=== PATIENT | female | born 1960 | race Caucasian/White ===

== ENCOUNTER → 2020-12-30 15:37 | Outpatient (CLI) | payer OTHER, SELFPAY ==
--- NOTE | ~2020-12-30 | MR_ITS ---
EXAMINATION: MR thoracic spine wo con DATE: 12/30/2020 16:53 INDICATION: Thoracic back pain. TECHNIQUE: Magnetic resonance imaging (MRI) of the thoracic spine was performed without intravenous c ontrast. Sagittal localizer T1-weighted FSE of the cervical spine was obtained. Thoracic spine sequen anne marie included sagittal T2-weighted FSE, sagittal T1-weighted FSE, sagittal T2-weighted FS FSE, and axi al T2-weighted FSE. COMPARISON: None FINDINGS: There is 32 degrees dextroscoliosis of thoracic spine. Vertebral body heights are normal. T here is mildly decreased disc height at T4-T5 and T5-T6, severely decreased disc height at T6-T7 and T7-T8, and moderately decreased disc height at T8-T9 and T9-T10. At T9-T10, there is a left subarticu lar zone extrusion. There is multilevel facet joint osteoarthritis, mild at most levels. At T7-T8 and T8-T9, there is severe left facet joint osteoarthritis. On the right, there is mild neural foraminal stenosis at T2-T3, T3-T4, and T4-T5. On the left, there is mild neural foraminal stenosis at T7-T8, T8-T9, and T9-T10. No central canal stenosis. The spinal cord signal intensity is normal. IMPRESSION: 1. Mild thoracic spondylosis. 2. Thoracic dextroscoliosis. Reviewed, dictated and finalized at location A.
--- NOTE | ~2020-12-30 | MR_ITS ---
EXAMINATION: MR lumbar spine wo con DATE: 12/30/2020 16:53 INDICATION: Low back pain. TECHNIQUE: Magnetic resonance imaging (MRI) of the lumbar spine was performed without intravenous con trast. Sequences included sagittal T2-weighted FSE, sagittal T2-weighted FS FSE, sagittal T1-weighted FSE, and axial T2-weighted FSE. COMPARISON: Lumbar spine MRI 11/27/2017 FINDINGS: There is dextroscoliosis of thoracic spine. Vertebral body heights are normal. Intervertebr al disc heights are normal. The distal spinal cord signal intensity is normal. The conus medullaris i s at T12-L1. There is a 12 mm cyst in left kidney. The following disc levels are specifically discuss ed: L1-L2: The disc does not extend beyond the endplate margin. There is mild bilateral facet joint osteo arthritis. There is no neural foraminal stenosis. There is no central canal stenosis. L2-L3: The disc does not extend beyond the endplate margin. There is mild bilateral facet joint osteo arthritis. There is no neural foraminal stenosis. There is no central canal stenosis. L3-L4: There is a right foraminal protrusion. There is mild bilateral facet joint osteoarthritis. The re is mild right neural foraminal stenosis. There is no central canal stenosis. L4-L5: The disc does not extend beyond the endplate margin. There is severe bilateral facet joint ost eoarthritis. There is mild bilateral neural foraminal stenosis. There is no central canal stenosis. L5-S1: The disc does not extend beyond the endplate margin. There is mild bilateral facet joint osteo arthritis. There is no neural foraminal stenosis. There is no central canal stenosis. IMPRESSION: 1. Mild lumbar spondylosis, stable from 11/27/2017 Reviewed, dictated and finalized at location A.
== END ==
PROVIDERS: Visit Provider Nurse Practitioner Adult Health
DX: M47.894 Other spondylosis, thoracic region (principal); M47.896 Other spondylosis, lumbar region
CPT/HCPCS: 72146; 72148

== ENCOUNTER → 2021-02-24 15:55 | Outpatient (CLI) | payer OTHER, SELFPAY ==
--- NOTE | ~2021-02-24 | MM_ITS ---
EXAMINATION: MM screening [facility] BI w mary HISTORY: Screening mammogram TECHNIQUE: Craniocaudal and mediolateral oblique 3-D tomosynthesis images were obtained and synthetic 2-D images were generated. CAD analysis was submitted and interpreted. COMPARISON: 08/16/2019, 03/22/2016, 08/19/2013, 08/25/2009 BREAST PARENCHYMAL COMPOSITION: There are scattered areas of fibroglandular density. FINDINGS: There is no evidence of suspicious mass, calcification, or architectural distortion to sugg est malignancy in either breast. There has been no suspicious interval change. IMPRESSION: 1. No mammographic evidence of malignancy. 2. Recommend routine screening mammography in one year. BI-RADS Category 1: Negative Reviewed, dictated and finalized at location A.
== END ==
PROVIDERS: PCP Internal Medicine; Visit Provider Internal Medicine
DX: Z12.31 Encounter for screening mammogram for malignant neoplasm of breast (principal)
CPT/HCPCS: 77063; 77067

== ENCOUNTER → 2021-03-01 15:41 | Outpatient (CLI) | payer OTHER, SELFPAY ==
--- NOTE | ~2021-03-01 | XR_ITS ---
XR shoulder RT min 2V DATE: 03/01/2021 16:22 INDICATION: Right shoulder pain TECHNIQUE: 4 views COMPARISON: 05/29/2006 right shoulder FINDINGS: Osteopenia. Dextroscoliosis of the thoracic spine. No fracture or dislocation of the right shoulder. Normal alignment at the acromioclavicular and gleno humeral joints. There is degenerative spurring of the right acromioclavicular joint. No periosteal re action or bone destruction. No abnormal right shoulder soft tissue calcification. IMPRESSION: Osteopenia Degenerative change at the right acromioclavicular joint Dextroscoliosis of the thoracic spine Reviewed, dictated and finalized at location A.
== END ==
PROVIDERS: Visit Provider Nurse Practitioner Adult Health
DX: M19.011 Primary osteoarthritis, right shoulder (principal); M85.811 Other specified disorders of bone density and structure, right shoulder; M41.9 Scoliosis, unspecified
CPT/HCPCS: 73030

== ENCOUNTER → 2021-11-03 14:21 | Outpatient (CLI) | payer OTHER, SELFPAY ==
--- NOTE | ~2021-11-03 | MR_ITS ---
EXAMINATION: MR shoulder RT wo con DATE: 11/03/2021 15:27 INDICATION: Right shoulder pain. TECHNIQUE: Magnetic resonance imaging (MRI) of the right shoulder was performed without intravenous c ontrast. Sequences included axial PD-weighted FS FSE, coronal oblique PD-weighted FS FSE and T2-weigh festus FS FSE, and sagittal oblique T2-weighted FS FSE and T1-weighted FSE. COMPARISON: Right shoulder radiographs 03/01/2021 FINDINGS: Coracoacromial arch: The acromion undersurface is curved in morphology (type II). There is severe acromioclavicular joint osteoarthritis. There is mild subacromial/subdeltoid bursitis. Rotator cuff: There is moderate supraspinatus and infraspinatus tendinopathy. Teres minor tendon is normal. There i s mild subscapularis tendinopathy. No tear. There is no asymmetric fatty atrophy of the rotator cuff muscle bellies. Biceps tendon and glenoid labrum: Biceps tendon is in bicipital groove. There is mild intra-articular biceps tendinopathy. The glenoid labrum is normal. Fluid: There is a small glenohumeral joint effusion. Bones/cartilage: There is partial-thickness cartilage loss of central glenoid. Humeral head cartilage is normal. IMPRESSION: 1. Moderate rotator cuff tendinopathy. No tear. 2. Mild glenohumeral joint chondrosis. 3. Severe acromioclavicular joint osteoarthritis. 4. Small glenohumeral joint effusion. 5. Mild subacromial/subdeltoid bursitis. 6. Mild intra-articular biceps tendinopathy. Reviewed, dictated and finalized at location A. OSITION TILE LAYER
== END ==
PROVIDERS: PCP Internal Medicine; Visit Provider Nurse Practitioner Adult Health
DX: M25.511 Pain in right shoulder (principal); M75.81 Other shoulder lesions, right shoulder; M94.8X1 Other specified disorders of cartilage, shoulder; M19.011 Primary osteoarthritis, right shoulder; M75.51 Bursitis of right shoulder
CPT/HCPCS: 73221

== ENCOUNTER → 2021-11-08 13:40 | Outpatient (CLI) | payer OTHER, SELFPAY ==
--- NOTE | ~2021-11-08 | DEXA_ITS ---
Bone Density Report Name: OSCAR JAMES Age: 61 Sex: Female Ethnicity: White Date of : 1960 Indication: postmenopausal; screening for osteoporosis; height loss; Referring Provider: Gayla Velasquez Study: Bone densitometry was performed. Exam Date: November 08, 2021 Accession number: [id number] Bone Density: Region BMD T-score Z-score Classification AP Spine (L1-L4) 0.832 -2.0 -0.3 Osteopenia Femoral Neck (Left) 0.596 -2.3 -0.9 Osteopenia Total Hip (Left) 0.759 -1.5 -0.4 Osteopenia Femoral Neck (Right) 0.605 -2.2 -0.8 Osteopenia Total Hip (Right) 0.787 -1.3 -0.2 Osteopenia Total Hip Mean 0.773 -1.4 -0.3 Osteopenia World Health Organization criteria for BMD impression classify patients as: Normal (T-score at or above -1.0), Osteopenia (T-score between -1.0 and -2.5), or Osteoporosis (T-score at or below -2.5). 10-year Fracture Risk(1): Major Osteoporotic Fracture 11% Hip Fracture 1.8% Reported Risk Factors: [place] (), Neck BMD=0.596, BMI=23.5 (1) FRAX(R) Version 3.08. Fracture probability calculated for an untreated patient. Fracture probability may be lower if the patient has received treatment. Clinical Information Provided by Patient: Has used the following medications: Vitamin D Patient maximum height was 61 Menopause Age: 51 No regular weight bearing exercise Does not regularly consume dairy products Drinks caffeinated beverages Onset of menses at age 14 Number of children 2 Impression: The patient has low bone mass, based on the Left Femoral Neck T-score. The patient has an estimated ten-year risk of hip fracture of 1.8% and an estimated ten-year risk of major fracture of 11%, based on the WHO FRAX algorithm. Discussion: BONE DENSITY IS LOW AT ONE OR MORE SKELETAL SITES. This patient's lowest T-score is low at one or more skeletal sites. It meets the World Health Organization's (WHO) criteria for ?low bone mass? (T-score between -1.0 and -2.5). The patient's 10-year risk of fracture as calculated by FRAX is less than the threshold where pharmacological therapy is recommended by the National Osteoporosis Foundation (NOF). However, all treatment decisions require clinical judgment and consideration of individual patient factors, including patient preferences, comorbidities, previous drug use, risk factors not captured in the FRAX model (e.g., frailty, falls, vitamin D deficiency, increased bone turnover, interval significant decline in bone density) and possible under or overestimation of fracture risk by FRAX. The patient should follow a healthful lifestyle (good nutrition with adequate calcium and vitamin D, and appropriate weight-bearing exercise). Follow-Up: Consider repeating this study in 2 to 3 years to reassess this patient's status, or sooner if there is some new
== END ==
PROVIDERS: PCP Internal Medicine; Visit Provider Nurse Practitioner
DX: M85.89 Other specified disorders of bone density and structure, multiple sites (principal)
CPT/HCPCS: 77080

== ENCOUNTER 2022-01-28 09:00 | Outpatient (RCR) | payer OTHER, SELFPAY ==
[2021-12-31 10:35] VITALS: BP_SYST 145
--- NOTE | 2021-12-31 16:38 | PTOPEVAL ---
PHYSICAL THERAPY INITIAL EVALUATION. Thank you for referring Nahomi Landers to [facility].? The patient is scheduled to be seen for therapy? 2x/week for 4 weeks. Please review, sign, date and return this plan of care JAKOB. I agree with and certify that the following plan of care is medically necessary. Referring Physician Date Attending Provider: Gayla Velasquez NP *PT Outpatient Evaluation Start: 12/31/21 Evaluation Information Diagnosis R shoulder pain Onset 1 year - shoulder Subjective Information Pt states her low back has Query Text:As Reported By Patient/ hurt for years, she has done Family therapy, injections, and froze the nerve endings . The back pain used to be constant and now is intermittent. Her shoulder is now her main priority. She states she fell about a year ago and jammed it and it just never really got better. She reports she is not able to move her arm behind her back or in other certain positions needed for her daily chores. She recently received an injection in her shoulder that she states helped a little. She reports full body stiffness and achiness, she states she subsided while she was on vacations as she walked very frequently. Pt reports pain vacuuming, closing the trunk of her car, and reaching to the top shelf. Pain Assessment Right Shoulder(s) Reported Pain Level 1 Pain Description Sharp,Soreness Pain Frequency Chronic,Intermittent Lowest Pain Intensity 1 Greatest Pain Intensity 10 Upper Extremity Range of Motion Right Shoulder Flexion - Active 125 Shoulder Flexion - Passive 137 Shoulder Abduction - Active 117 Shoulder Abduction - Passive 145 Shoulder Medial Rotation - Active T2 Shoulder Lateral Rotation - Active T11 Left Shoulder Flexion - Active 145 Shoulder Abduction - Active 170 Shoulder Medial Rotation - Active T4 Shoulder Lateral Rotation - Active T4 Upper Extremity Muscle Strength Testing Right Shoulder Flexion Strength 4+ Good + Shoulder Abduction Strength 4 Good Shoulder Medial Rotation Strength
--- NOTE | 2022-01-17 08:11 | PCPTNOTE ---
Patient called & cancelled scheduled appointments from January 17- due to being out of town.
--- NOTE | 2022-01-26 14:57 | PCPTNOTE ---
Patient called & cancelled scheduled appointment this date due to bad weather in the forecast.
[2022-01-28 09:04] VITALS: BP_SYST 180
--- NOTE | 2022-01-28 10:43 | PTOPEVAL ---
PHYSICAL THERAPY PROGRESS REPORT AND DISCHARGE NOTE. Thank you for referring Nahomi Landers to [facility].? The patient is to be discharged from skilled physical therapy services at this time. Please review, sign, date and return this plan of care JAKOB. I agree with and certify that the following plan of care is medically necessary. Referring Physician Date Attending Provider: Gayla Velasquez NP Evaluation Information Diagnosis R shoulder pain Onset 1 year - shoulder Subjective Information Pt states she thinks her Query Text:As Reported By Patient/ shoulder is doing much better, Family she states her shoulder is a little sore but she states this feels more like muscle soreness. She states she is becoming more aware of her posture. She states she closed the trunk of her car the other day without an increase in pain. Pain Assessment Right Shoulder(s) Reported Pain Level 0 Pain Description Soreness Greatest Pain Intensity 3 Scapular/ Shoulder Range of Motion Right Shoulder Flexion - Active 142 Shoulder Flexion - Passive 162 Shoulder Abduction - Active 172 Shoulder Abduction - Passive 180 Shoulder Medial Rotation - Active T3 Shoulder Lateral Rotation - Active T8 Left Shoulder Flexion - Active 145 Shoulder Abduction - Active 170 Shoulder Medial Rotation - Active T4 Shoulder Lateral Rotation - Active T4 Upper Extremity Muscle Strength Testing Right Shoulder Flexion Strength 4+ Good + Shoulder Abduction Strength 4+ Good + Shoulder Medial Rotation Strength 4+ Good + Shoulder Lateral Rotation Strength 4+ Good + Shoulder Strength Comments R shoulder requires more resistance than L PT Clinical Summary Nahomi presents to therapy today for her progress report following 5 visits of therapy to treat her diagnosis of R shoulder pain. Today she demonstrates improvements in active and passive ROM, functional ROM equal to the uninvolved side, and strength equal to the uninvolved side. She has met all of her therapy goals. She is to be discharged from skilled therapy services at this time to continue with her home
== END 2022-01-28 15:10 | disposition home or self-care (01) ==
LOC: ANHPT 09:00
PROVIDERS: PCP Internal Medicine; Visit Provider Nurse Practitioner
DX: M54.50 Low back pain, unspecified (principal); M25.511 Pain in right shoulder; G89.29 Other chronic pain
CPT/HCPCS: 97110; 97112; 97161

== ENCOUNTER 2023-11-24 10:15 | Outpatient (CLI) | payer MEDICARE, OTHER, SELFPAY ==
[2023-11-24 12:14] LABS: Basophils Absolute Auto 0.1 K/mm3 (0.0-0.1); Basophils Percent Auto 1.4 % (0.2-1.2); Eosinophils Absolute Auto 0.5 K/mm3 (0-0.3); Eosinophils Percent Auto 8.8 % (0-4.4); Hematocrit 42.3 % (37.0-47.0); Immature Granulocyte Absolute 0.01 K/mm3 (0.00-0.031); Immature Granulocyte Percent A 0.2 % (0-0.5); Lymphocytes Absolute Auto 1.83 K/mm3 (0.9-3.2); Lymphocytes Percent Auto 31.1 % (18.3-44.2); Mean Corpuscular HGB Conc 33.1 g/dl (32-36); Mean Corpuscular Hemoglobin 32.2 pg (26-34); Mean Corpuscular Volume 97.2 fl (80-100); Mean Platelet Volume 10.6 fl (7.4-10.4); Monocytes Absolute Auto 0.4 K/mm3 (0.1-0.6); Monocytes Percent Auto 6.5 % (2.6-8.5); Neutrophils Absolute Auto 3.1 K/mm3 (1.3-6.7); Platelet Count Result 258 k/mm3 (150-375); Red Blood Count 4.35 M/mm3 (4.2-5.4); Red Cell Distribution Width 12.6 % (11.5-14.5); White Blood Count 5.9 K/mm3 (4.5-10.0)
[2023-11-24 12:22] LABS: Alanine Aminotransferase 17 U/L (6-35); Albumin Level 4.4 g/dL (3.5-5.1); Alkaline Phosphatase 56 U/L (38-126); Anion Gap 5 mmol/L (8-16); Aspartate Amino Transferase 39 U/L (14-36); Bilirubin,Total 0.7 mg/dL (0.2-1.3); Blood Urea Nitrogen 24 mg/dL (7-17); Calcium 9.8 mg/dL (8.4-10.2); Carbon Dioxide 30 mmol/L (22-30); Chloride 105 mmol/L (98-107); Cholesterol 193 mg/dL (0-200); Estimated Glomerular Filt Rate > 60; Glucose 91 mg/dL (65-110); HDL Direct 64 mg/dL; Potassium 4.2 mmol/L (3.4-5.0); Sodium 140 mmol/L (137-145); Triglycerides 99 mg/dL (<150)
[2023-11-24 12:33] LABS: LDL Cholesterol Direct 63 mg/dL
[2023-11-24 13:14] LABS: Vitamin D 25 Hydroxy 87.6 ng/mL
== END 2023-11-24 10:16 | disposition home or self-care (01) ==
PROVIDERS: PCP Internal Medicine; Visit Provider Nurse Practitioner
DX: E78.5 Hyperlipidemia, unspecified (principal); E55.9 Vitamin D deficiency, unspecified; Z13.29 Encounter for screening for other suspected endocrine disorder
CPT/HCPCS: 36415; 80053; 80061; 82306; 85025

== ENCOUNTER 2024-01-22 15:33 | Outpatient (CLI) | payer MEDICARE, OTHER, SELFPAY ==
--- NOTE | 2024-01-22 15:52 | ECG_ITS ---
Measurements Intervals [place] Rate: 53 P: 43 MD: 180 QRS: 21 QRSD: 92 T: 33 QT: 418 QTc: 402 Interpretive Statements SINUS BRADYCARDIA LOW QRS VOLTAGE IN PRECORDIAL LEADS [QRS DEFLECTION <1.0 mV IN CHEST LEADS] POSSIBLE RIGHT VENTRICULAR CONDUCTION DELAY [RSR (QR) IN V1/V2] BORDERLINE ECG SEE SCANNED COPY FOR SIGNATURE MTDD
== END 2024-01-22 15:34 | disposition home or self-care (01) ==
LOC: ANHCARD 15:35
PROVIDERS: PCP Internal Medicine; Visit Provider Podiatrist Foot & Ankle Surgery
DX: R03.0 Elevated blood-pressure reading, without diagnosis of hypertension (principal); R00.1 Bradycardia, unspecified
CPT/HCPCS: 93005

== ENCOUNTER 2024-06-07 11:01 | Outpatient (CLI) | payer MEDICARE, SELFPAY | END 2024-06-07 11:02 | disposition home or self-care (01) | LOC: ANHAUDASC 11:02 | PROVIDERS: PCP Internal Medicine; Visit Provider Nurse Practitioner | DX: H90.3 Sensorineural hearing loss, bilateral (principal) | CPT/HCPCS: 92557; 92567 ==

== ENCOUNTER 2025-02-28 10:29 | Outpatient (CLI) | payer MEDICARE, SELFPAY ==
--- NOTE | ~2025-02-28 | DEXA_ITS ---
Bone Density Report Name: OSCAR JAMES Age: 64 Sex: Female Ethnicity: White Date of : 1960 Indication: osteopenia; height loss; Referring Provider: VANE ABBOTT Study: Bone densitometry was performed. Exam Date: February 28, 2025 Accession number: [id number] Bone Density: Region BMD T-score Z-score Classification AP Spine(L1-L4) 0.916 -1.2 0.7 Osteopenia Femoral Neck (Left) 0.565 -2.6 -1.0 Osteoporosis Total Hip (Left) 0.783 -1.3 0.0 Osteopenia Femoral Neck (Right) 0.596 -2.3 -0.7 Osteopenia Total Hip (Right) 0.817 -1.0 0.3 Normal Total Hip Mean 0.800 -1.2 0.2 Osteopenia World Health Organization criteria for BMD impression classify patients as: Normal (T-score at or above -1.0), Osteopenia (T-score between -1.0 and -2.5), or Osteoporosis (T-score at or below -2.5). 10-year Fracture Risk: FRAX not reported because: Some T-score for Spine Total or Hip Total or Femoral Neck at or below -2.5 Previous Exams: Region Exam Age BMD T-score BMD Change BMD Change Date g/cm2 vs Baseline vs Previous AP Spine (L1-L4) 02/28/2025 64 0.916 -1.2 0.015 (1.7%) 0.015 (1.7%) 12/19/2016 56 0.901 -1.3 Total Hip(Left) 02/28/2025 64 0.783 -1.3 -0.036 (-4.4%) -0.036 (-4.4%) 12/19/2016 56 0.819 -1.0 Total Hip(Right) 02/28/2025 64 0.817 -1.0 -0.011 (-1.3%) -0.011 (-1.3%) 12/19/2016 56 0.828 -0.9 *Denotes significance at 95% confidence level, LSC for AP Spine = 0.022 g/cm2, LSC for Total Hip = 0.027 g/cm2 Clinical Information Provided by Patient: Has used the following medications: Vitamin D Patient maximum height was 61 Menopause Age: 49 Does not regularly consume dairy products Drinks caffeinated beverages Onset of menses at age 14 Number of children 2 Impression: The patient has osteoporosis, based on the Left Femoral Neck T-score. The BMD for the Total Hip(Left) decreased, changing by -4.4% since the last DXA exam. Discussion: INCREASED RISK OF FRACTURE. BONE DENSITY IS UNDESIRABLY LOW AT ONE OR MORE SKELETAL SITES, CONSISTENT WITH POSTMENOPAUSAL OSTEOPOROSIS. This patient's lowest T-score meets the World Health Organization's (WHO) criteria for osteoporosis at one or more sites (T-score -2.5 or below). In untreated patients, the risk of osteoporotic fracture increases approximately two-fold for each 1.0 SD decrease in T-score. Low bone density is not the only risk factor for fracture; also consider factors such as patient's age, frailty or poor health, risk of falling, risk of injury, previous osteoporotic fracture, family history of osteoporosis, cigarette smoking, low body weight, etc. Not everyone with low bone mineral density has osteoporosis; osteomalacia and other metabolic bone disorders should also be considered. Patients who have osteoporosis should be evaluated for specific diseases and conditions (secondary causes) that may cause or contribute to bone loss. The [place] [employer] Endocrinologists (AACE) and National Osteoporosis Foundation (NOF) recommend pharmacologic intervention for all postmenopausal women whose T-score is in this range. The patient should follow a healthful lifestyle (good nutrition with adequate calcium and vitamin D, and appropriate weight-bearing exercise). Follow-Up: Consider a repeat BMD and Vertebral Fracture Assessment (VFA) exam in 2 years or sooner if medically necessary, to reassess this patient's status. Reported by: EMI on 02/28/2025 11:15:00 AM. Reviewed, dictated and finalized at location A.
--- NOTE | ~2025-02-28 | MM_ITS ---
EXAMINATION: MM screening cody BI w mary HISTORY: Screening TECHNIQUE: Craniocaudal and mediolateral oblique 3-D tomosynthesis images were obtained and synthetic 2-D images were generated. CAD analysis was submitted and interpreted. COMPARISON: Comparison to multiple prior studies sequentially, with oldest reviewed study dated 04/2016. BREAST PARENCHYMAL COMPOSITION: Not dense: There are scattered areas of fibroglandular density. FINDINGS: There is no evidence of suspicious mass, calcification, or architectural distortion to sugg est malignancy in either breast. There has been no suspicious interval change. IMPRESSION: 1. No mammographic evidence of malignancy. 2. Recommend routine screening mammography in one year. BI-RADS Category 1: Negative Reviewed, dictated and finalized at location A.
--- OUTSIDE RECORDS SUMMARY | 2025-02-28 10:37 | XMS_ITS | Data Portability ---
Author Organization [employer], Main Office Address [address] [place] [address] Assessment Encounter Date Assessment Date Assessment LastModified by Organization Details LastModified Time 12/20/2022 12/20/2022 Sclerotherapy of BLEs. Patient tolerated well. Recommended f/u in 6-8 weeks if she wishes to have further sclerotherapy of any remaining spider veins. Patient agreeable. Not available 12/20/2022 13:56:45 12/10/2024 12/10/2024 patient will follow-up for injection sclerotherapy bilateral lower extremities. Discussed with patient Not available 12/10/2024 14:24:28 12/31/2024 12/31/2024 Sclerotherapy today, patient tolerated well. RTC PRN. Post procedural care explained. [email or web address] Not available 12/31/2024 13:13:30 Plan of Treatment Reminders Order Date Submit Date Provider Last Modified By Organization Details Last Modified Time Details Appointments None record ed. Lab None record ed. Referral None record ed. Procedures None record ed. Surgeries None record ed. Imaging None record ed. Medication Orders None record ed. Patient TargetsNo targets recorded. Patient InstructionsNo instructions recorded. Reason for Referral None Reported. 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 Procedures Surgical History Date Name Laterality Status Provider Name and Address Organization Details Recorded Time 5 Blank Procedure Note completed Dylan Harding MD [address], [address], [place], [address], [employer] 12/31/2024 13:10:25 3 Blank Procedure Note completed Dylna Harding MD [address], [address], [place], [address], [facility] [employer] 12/20/2022 13:56:02 other completed Not Available [facility] 10/2022 07:26:55 Imaging Results None recorded. Procedure Notes None recorded. Medical Equipment None Reported. Allergies Allergen ID Allergen Name Allergen Category Reaction Reaction Severity Criticality Documentation Date Start Date Code Code System Note Provider Name and Address Organization Details Recorded Time 80740 Substance with sulfonami de structure and antibacte rial mechanism of action (substanc e) medicatio n nausea moderate Not available 12/14/2022 12022 8003 SNOMED Not Available [facility] 3 07:36:36 10786 Product containin g penicilli n (product) medicatio n itching severe Not available 12/14/2022 12474 8001 SNOMED Not Available [facility] 3 07:36:37 Medications Name Sig Start Date Stop Date Status Note LastModified by Organization Details LastModified Time hydrocortisone -pramoxine 2.5 %-1 % rectal cream active Not Available Not Available Not Available azithromycin 250 mg tablet active Not Available Not Availabl e Not Available ondansetron HCl 4 mg tablet active Not Available Not Available Not Available alendronate 70 mg tablet TAKE 1 TABLET BY MOUTH ONCE A WEEK active Not Available Not Available No t Available acetaminophen 300 mg-codeine 30 mg tablet active Not Available Not Available Not Available ciprofloxacin 250 mg tablet active Not Available Not Availabl e Not Available benzonatate 100 mg capsule active Not Available Not Availab le Not Available cefuroxime axetil 500 mg tablet active Not Available Not Available Not Available fluticasone propionate 50 mcg/actuation nasal spray,suspensi on active Not Available Not Available Not Available neomycin-polym yxin-hydrocort 3.5 mg-10,000 unit/mL-1 % ear drops,susp INSTILL 3 DROPS INTO AFFECTED EAR(S) THREE TIMES DAILY FOR 7 DAYS active Not Available Not Available No t Available nitrofurantoin monohydrate/ma crocrystals 100 mg capsule active Not Available Not Availab le Not Available Osphena 60 mg tablet active Not Available Not Available Not Available BinaxNOW COVID-19 Ag Self Test kit Use as Directed on the Package active Not Available Not Available No t Available Vitals Date Recorded Body mass index (BMI) Body height Heart rate Respiratory rate Body temperature Body weight Provider Name and Address Organization Details Last Updated DateTime 1 21.5 kg/m2 154.94 cm 74 /min 12 /min 98.8 [degF] 29361.5 3 g Not Available [facility] 3 07:27:59 Date Recorded Body mass index (BMI) Body height Oxygen saturation Oxygen saturation in Arterial blood by Pulse oximetry Heart rate Respiratory rate Body temperature Body weight Provider Name and Address Organization Details Last Updated DateTime 1 21.5 kg/m2 154.94 cm 99 % 99 % 80 /min 14 /min 97.5 [degF] 01387.5 3 g Not Available [facility] 3 07:27:59 Date Recorded Body height Body mass index (BMI) Body weight Provider Name and Address Organization Details Last Updated DateTime 12/20/2022 154.94 cm 21.5 kg/m2 71412.53 g Kalani Kinmundy [employer] 12/20/2022 12:31:16 Date Recorded Body height Body mass index (BMI) Body weight Body temperature Respiratory rate Heart rate Oxygen saturation Oxygen saturation in Arterial blood by Pulse oximetry Systolic blood pressure Diastolic blood pressure Provider Name and Address Organization Details Last Updated DateTime 5 154.94 cm 21.5 kg/m2 24440.5 3 g 98 [degF] 14 /min 70 /min 98 % 98 % 110 mm[Hg] 76 mm[Hg] Kalani So [employer] 5 12:20:21 Date Recorded Body height Body mass index (BMI) Body weight Heart rate Systolic blood pressure Diastolic blood pressure Provider Name and Address Organization Details Last Updated DateTime 5 154.94 cm 21.5 kg/m2 33632.5 3 g 72 /min 112 mm[Hg] 74 mm[Hg] TANYA Lindsey [place] - [facility] [email or web address] [facility] 11:50:37 Social History Question Answer Notes LastModified by [employer] Details LastModified Time Tobacco Smoking Status Never Smoker Not Available [facility] 12/14/2022 07:26:24 In The 14 Days Before Symptom Onset, Have You Had Close Contact With A Laboratory-confirm ed COVID-19 While That Case Was Ill? No [id number] Information not available 12/14/2022 In The 14 Days Before Symptom Onset, Have You Had Close Contact With A Person Who Is Under Investigation For COVID-19 While That Person Was Ill? No [id number] Information not available 12/14/2022 Are There Any Guns Present In Your Home? No [id number] Information not available 12/14/2022 Sex: Unknown Functional Status Question Answer Note LastModified by [employer] Details LastModified Time What is your level of alcohol consumption? 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 Family History Relationship Description Onset Age of this Age Resolved Age Notes LastModified by Organization Details LastModified Time Mother Venous varices [id number] Not available 12/14/2022 07:26:56 Medical History No medical history recorded. Gynecological HistoryNo gynecological history recorded. Obstetrics History GPAL:G 0 P 0 0 0 0 Past Encounters Encounter ID Performer Location Encounter Start Date Encounter Closed Date Diagnosis/Indication Diagnosis SNOMED-CT Code Diagnosis ICD10 Code Diagnosis Note [id number] Dylan hassan MD [facility] General Surgery [address] [address] 01/05/2021 00:00:00 01/05/2021 13:31:41 [id number] Dylan hassan MD [facility] General Surgery [address] [address] 01/26/2021 00:00:00 01/26/2021 14:19:02 [id number] Dylan hassan MD [facility] General Surgery [address] [address] 12/20/2022 12:20:24 12/20/2022 14:20:12 Bilateral spider veins of lower limbs 1527443099 2718144 I78.1 [id number] Dylan hassan MD [facility] General Surgery [address] [address] 12/10/2024 12:09:58 12/10/2024 14:24:32 Bilateral spider veins of lower limbs 3661458295 8043664 I78.1 [id number] Dylan hassan MD [facility] General Surgery [address] [address] 12/31/2024 11:45:30 02/27/2025 10:54:32 Bilateral spider veins of lower limbs 2601088731 1098706 I78.1 bilat legs Health Concerns Section Related Observation LastModified by Organization Detai ls LastModified Time None Recorded Concern Status LastModified by Organization Details LastModified Time None Recorded Advance Directives Directive None Recorded Payers Encounter Date Sequence Insurance Name Policy Number Policy Storm Covered Member ID Storm Member ID Guarantor Name 12/20/2022 1 [employer] - DOS PRIOR TO 21 - DAY [facility] BENEFITS PLAN [id number] Nahomi Landers [id number] Nahomi Landers 12/10/2024 1 [employer] (MEDICARE REPLACEMENT/A DVANTAGE - PPO) [id number] Nahomi Landers [id number] Nahomi Landers 12/10/2024 2 [place] Nahomi Landers [id number] Nahomi Landers 12/31/2024 1 [employer] (MEDICARE REPLACEMENT/A DVANTAGE - PPO) [id number] Nahomi Landers [id number] Nahomi Landers 12/31/2024 2 [place] Nahomi Landers [id number] Nahomi Landers Notes Date Note Type Note Provider Name and Address Organization Details Recorded Time 12/20/2022 text/html Patient presents to clinic for sclerotherapy of BLEs. Multiple areas of telangectasias on both legs. Dylan Harding MD [address], [facility] [address], [place], [address], [employer] 12/20/2022 14:53:30 12/31/2024 text/html Patient presents to clinic for sclerotherapy of BLEs. Multiple areas of telangectasias on both legs. Dylan Harding MD [address], [address], [place], [address], [employer] 12/31/2024 14:58:31 OBGyn Episode No OBEpisode recorded.
--- OUTSIDE RECORDS SUMMARY | 2025-02-28 10:37 | XMS_ITS | Clinical Summary ---
Author Organization [facility] Address [address] [place] [id number] Care Team Providers Care Disc Inspector Name Role Phone Unavailable Primary Care Provider Unavailabl e Social History Tobacco Use Types Packs/Day Years Used Date Smoking Tobacco: Never Assessed Comments Unknown Sex and Gender Information Value Date Recorded Sex Assigned at Not on file Legal Sex Female 5:15 PM CDT Gender Identity Not on file Sexual Orientation Not on file Plan of Treatment Health Maintenance Due Date Last Done Comments Colorectal Cancer Screening Colonoscopy (10 Years) 1958 Hepatitis C 1976 DTaP, Tdap and Td Vaccines ( 1 - Tdap) 1977 Mammogram Screening 1998 Pneumococcal Vaccine: 50+ Ye ars (1 of 1 - PCV) 2008 Zoster Vaccines (1 of 2) 2008 Dexa Scan (General) 2023 COVID-19 Vaccine ( - 2023-2 5 season) 2024 RSV Immunization or 60+ Years (1 - 1-dose 75+ series) 2033 Meningococcal B Vaccine Aged Out No l onger eligible based on patient's age to complete this topic Meningococcal Vaccine Aged Out No lobito jim eligible based on patient's age to complete this topic RSV Immunizations Under 20 Months Aged Out No longer eligible based on patient's age to complete this topic
--- OUTSIDE RECORDS SUMMARY | 2025-02-28 10:37 | XMS_ITS | Clinical Summary ---
Author Organization [facility] [address] Address [address] [place] [address] Care Team Providers Care Roofer Metal Name Role Phone Ricardo Olivas DO Primary Care Provider [phone] Allergies Active Allergy Reactions Criticality Noted Date Comments Penicillins Hives Medium 06/01/2022 Sulfa (Sulfonamide Antibiotics) Unknown 05/16 Medications neomycin-polymy олег-HC (CORTISPORIN) 3.5-10,000-1 mg/mL-unit/mL-% otic suspensionIndic ations:Otitis Externa 3 drops to the affected ear(s) 3 times daily for 1 week 7.5 mL 1 11/08/19 23 Active alendronate (FOSAMAX) 70 mg tablet alendronate 70 mg tablet TAKE 1 TABLET BY MOUTH ONCE A WEEK Active azithromycin (ZITHROMAX) 250 mg tablet azithromycin 250 mg tablet Active benzonatate (TESSALON) 100 mg capsule benzonatate 100 mg capsule Active cefuroxime (CEFTIN) 500 mg tablet cefuroxime axetil 500 mg tablet Active ciprofloxacin (CIPRO) 250 mg tablet ciprofloxacin 250 mg tablet Active fluticasone propionate (FLONASE) 50 mcg/actuation nasal spray fluticasone propionate 50 mcg/actuation nasal spray,suspension Active hydrocortisone- pramoxine (ANALPRAM-HC) 2.5-1 % rectal cream hydrocortisone-pra moxine 2.5 %-1 % rectal cream Active nitrofurantoin monohydrate (MACROBID) 100 mg capsule nitrofurantoin monohydrate/macroc rystals 100 mg capsule Active ospemifene (Osphena) 60 mg tablet Osphena 60 mg tablet Active Active Problems Problem Noted Date Diagnosed Date Impacted cerumen of left ear 11/08/2022 Chronic reactive otitis externa of left ear 10/17 Surgical History Surgery Date Site/Laterality Comments SECTION 10/16/1993 - 10/15/1994 Medical History Medical History Date Comments Osteopenia Family History Medical History Relation Name Comments Cancer Brother Diabetes Brother Diabetes Father Heart disease Maternal Grandfather Heart disease Maternal Grandmother Diabetes Mother Heart disease Mother Relation Name Status Comments Brother Father Maternal Grandfather Maternal Grandmother Mother Social History Tobacco Use Types Packs/Day Years Used Date Smoking Tobacco: Former Cigarettes Smokeless Tobacco: Never Tobacco Cessation:Counseling Given: Not Answered AUDIT-C Answer Date Recorded Q1: How often do you have a drink containing alc ohol? 2-3 times a week 06/01/2022 Q2: How many drinks containi ng alcohol do you have on a typical day when you are drinking? 1 or 2 06/01/2022 Q3: How often do you have si x or more drinks on one occasion? 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 Gender Identity Not on file Sexual Orientation Not on file Obstetrics History Last Filed Vital Signs Vital Sign Reading Time Taken Comments Blood Pressure 112/73 06/01/2022 12:51 PM CDT Pulse 65 06/01/2022 12:51 PM CDT Temperature - - Respiratory Rate 18 03/07/2023 10:46 AM CDT Oxygen Saturation - - Inhaled Oxygen Concentration - - Weight 53.1 kg (117 lb) 03/07/2023 10:46 AM CDT Height 154.9 cm (5' 1 ) 03/07/2023 10:46 AM CDT Body Mass Index 22.11 03/07/2023 10:46 AM CDT Plan of Treatment Health Maintenance Due Date Last Done Comments Breast Cancer Screening-Mammogram 1960 Colon Cancer Screening-Colonoscopy 1958 Depression Screening 1958 Fall Risk Assessment 1958 Hepatitis C Screening 1958 Osteoporosis Screening-Bone Density Scan 1958 DTaP/Tdap/Td Vaccine (1 - Tdap) 1969 Hepatitis B Screening 1976 Pneumococcal vaccine 65+ (1 of 1 - PCV) 2008 Zoster Vaccine (1 of 2) 2008 Well Visit 65+ 2023 Covid-19 Vaccine (3 - 2023- season) 06/16/202402/2021, 12/22/2020 Influenza Vaccine (#1) 2024 Insurance [facility] Care Teams Roofer Metal Relationship Specialty Start Date End Date Ricardo Olivas DO PCP - General Internal Medicine 08/23/21
--- OUTSIDE RECORDS SUMMARY | 2025-02-28 10:37 | XMS_ITS | Referral Summary ---
Author Organization [facility] [address] Address [address] [place] [address] Care Team Providers Care Hse Coordinator Name Role Phone Ricardo Olivas DO Primary Care Provider [phone]- [phone] Allergies Active Allergy Reactions Criticality Noted Date [...] reactive otitis externa of left ear 10/17 Social History Tobacco Use Types Packs/Day Years [...] on file Legal Sex Female 1:17 AM M[employer]ER [employer] Gender Identity Not on file Sexual Orientation Not on file Last Filed Vital Signs Vital Sign Reading [...] 03/07/2023 10:46 AM CDT Plan of Treatment Not on file Insurance [employer] [facility] [id number] [facility] Care Teams Hse Coordinator Relationship Specialty Start Date End Date Ricardo Olivas DO PCP - General Internal Medicine 08/23/21
== END 2025-02-28 10:30 | disposition home or self-care (01) ==
LOC: ANHIMG 10:35
PROVIDERS: PCP Internal Medicine; Visit Provider Nurse Practitioner
DX: Z12.31 Encounter for screening mammogram for malignant neoplasm of breast (principal); M85.89 Other specified disorders of bone density and structure, multiple sites; M81.0 Age-related osteoporosis without current pathological fracture; Z78.0 Asymptomatic menopausal state
CPT/HCPCS: 77063; 77067; 77080

== ENCOUNTER 2025-06-02 11:23 | Outpatient (CLI) | payer MEDICARE, SELFPAY ==
[2025-06-02 13:13] LABS: Hematocrit 38.8 % (37.0-47.0); Hemoglobin 13.1 g/dL (12.0-15.0); Immature Granulocyte Percent A 0.3 % (0-0.5); Lymphocytes Absolute Auto 2.20 K/mm3 (0.9-3.2); Mean Corpuscular HGB Conc 33.8 g/dl (32-36); Mean Corpuscular Hemoglobin 32.3 pg (26-34); Mean Corpuscular Volume 95.8 fl (80-100); Nucleated Red Blood Cells Absolute Auto 0.000 K/mm3 (0.0-0.012); Nucleated Red Blood Cells Perc 0.0 % (0.0-0.2); Platelet Count Result 233 k/mm3 (150-375); Red Blood Count 4.05 M/mm3 (4.2-5.4); White Blood Count 6.1 K/mm3 (4.5-10.0)
[2025-06-02 13:27] LABS: Alanine Aminotransferase 21 U/L (6-35); Albumin Level 4.1 g/dL (3.5-5.1); Alkaline Phosphatase 42 U/L (38-126); Anion Gap 4 mmol/L (4-12); Aspartate Amino Transferase 46 U/L (14-36); Bilirubin,Total 0.5 mg/dL (0.2-1.3); Blood Urea Nitrogen 18 mg/dL (7-17); Calcium 9.1 mg/dL (8.4-10.2); Carbon Dioxide 28 mmol/L (22-30); Chloride 106 mmol/L (98-107); Cholesterol 180 mg/dL (0-200); Estimated Glomerular Filt Rate > 60; Glucose 92 mg/dL (65-110); HDL Direct 62 mg/dL; Potassium 4.5 mmol/L (3.4-5.0); Sodium 138 mmol/L (137-145); Total Protein 7.1 g/dL (6.3-8.2); Triglycerides 86 mg/dL (<150)
== END 2025-06-02 11:24 | disposition home or self-care (01) ==
LOC: ANHGOSHLAB 11:24
PROVIDERS: PCP Nurse Practitioner; Visit Provider Nurse Practitioner
DX: E78.2 Mixed hyperlipidemia (principal); E55.9 Vitamin D deficiency, unspecified; Z13.29 Encounter for screening for other suspected endocrine disorder
CPT/HCPCS: 36415; 80053; 80061; 82306; 85025